=== PATIENT | male | born 1965 | race Caucasian/White ===

== ENCOUNTER → 2025-03-22 13:16 | Outpatient (REF) | payer OTHER, SELFPAY | LOC: EMG 13:16 | PROVIDERS: ATTENDING PHYSICIAN Nurse Practitioner Family; FAMILY PHYSICIAN Family Medicine | DX: R20.2 Paresthesia of skin (principal); M79.602 Pain in left arm; R20.0 Anesthesia of skin | CPT/HCPCS: 95886; 95909 ==